=== PATIENT | male | born 1930 | race Caucasian/White ===

== ENCOUNTER 2019-07-23 10:16 | Emergency (ER) | payer MEDICARE, OTHER ==
--- NOTE | 2019-07-23 11:01 | EDM.PDOC ---
ED HPI GENERAL MEDICAL PROBLEM - General Chief Complaint: Gastrointestinal Problem Stated Complaint: not able to eat or drink Time Seen by Provider: 07/23/19 10:45 Source of Information: Reports: Patient, Old Records, RN History Limitations: Reports: No Limitations - History of Present Illness INITIAL COMMENTS - FREE TEXT/NARRATIVE: 88 yo male presents with his with about 2 weeks of discomfort after eating in his abdomen. He has been doing a little better by snacking and not eating whole meals. He feels gassy when he eats or drinks. He has not had any vomiting. His stools have been mostly normal. No fever. He thinks he has lost about 10 lbs since this began. At no point did he consult his own physician. He had something like this once remotely and was seen at [facility] who really didn't find anything he says. His urination is unchanged. Past surgeries include cholecystectomy and repair of a perforation that occurred during colonoscopy. Onset: Gradual Onset Date: 07/09/19 Duration: Week(s): (2), Getting Worse Location: Reports: Abdomen Quality: Reports: Other (fullness/gassiness after eating. ) Severity: Moderate Improves with: Reports: Other (not eating) Worsens with: Reports: Eating Context: Reports: Other (See HPI) Associated Symptoms: Reports: Other (weight loss of 10 lbs). 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: Other (see below) (none) - Related Data Allergies Allergy/AdvReac Type Severity Reaction Status Date / Time morphine Allergy Cannot Verified 07/23/19 10:51 Remember Home Meds: Home Meds Omeprazole 20 mg PO DAILY 03/24/13 [History] Brimonidine [Alphagan 0.2% Ophth Soln] 1 drop EYERT TID 07/23/19 [History] Dorzolamide/Timolol [Dorzolomide-Timolol Eye Drops] 1 drop EYERT BID 07/23/19 [ History] Latanoprost 1 drop EYERT BEDTIME 07/23/19 [History] PEG 400/Hypromellose/Glycerin [Dry Eye Relief Eye Drops] 1 drop EYEBOTH TID PRN 07/23/19 [History] Past Medical History - Past Health History Medical/Surgical History: Denies Medical/Surgical History Social & Family History - Tobacco Use Smoking Status *Q: Former Smoker Used Tobacco, but Quit: No ED ROS GENERAL - Review of Systems Review Of Systems: See Below Constitutional: Reports: No Symptoms HEENT: Reports: No Symptoms Respiratory: Reports: No Symptoms Cardiovascular: Reports: No Symptoms GI/Abdominal: Reports: Abdominal Pain (only if he eats), Anorexia, Decreased Appetite, Distension (after eating). Denies: Black Stool, Bloody Stool, Constipation, Diarrhea, Flatus, Hematochezia, Melena, Nausea, Vomiting : Reports: No Symptoms Musculoskeletal: Reports: No Symptoms Skin: Reports: No Symptoms Neurological: Reports: No Symptoms ED EXAM, GI/ABD - Physical Exam Exam: See Below Exam Limited By: No Limitations General Appearance: Alert, WD/WN, No Apparent Distress Eyes: Bilateral: Normal Appearance Ears: Normal External Exam, Normal Canal, Hearing Grossly Normal Nose: Normal Inspection, No Blood Throat/Mouth: Normal Inspection, Normal Lips, Normal Oropharynx, Normal Voice, No Airway Compromise Head: Atraumatic, Normocephalic Neck: Normal Inspection Respiratory/Chest: No Respiratory Distress, Lungs Clear, Normal Breath Sounds, No Accessory Muscle Use Cardiovascular: Regular Rate, Rhythm, No Edema GI/Abdominal Exam: Normal Bowel Sounds, Soft, Non-Tender, No Distention Back Exam: Normal Inspection. No: CVA Tenderness (R), CVA Tenderness (L) Extremities: Normal Inspection, Normal Range of Motion, Non-Tender, No Pedal Edema. No: Pedal Edema Neurological: Alert, Oriented, CN II-XII Intact, Normal Cognition, No Motor/ Sensory Deficits Psychiatric: Normal Affect, Normal Mood Skin Exam: Warm, Dry, Intact, Normal Color, No Rash Course - Vital Signs Last Recorded V/S: Last Vital Signs Temp 36.5 C 07/23/19 14:50 Pulse 67 07/23/19 14:50 Resp 18 07/23/19 14:50 BP 138/79 07/23/19 14:50 Pulse Ox 100 07/23/19 14:50 - Orders/Labs/Meds Orders: Active Orders 24 hr Category Date Time Status Abdomen Pelvis w Cont [CT] Stat Exams 07/23/19 12:56 Taken Sodium Chloride 0.9% [Saline Flush] Med 07/23/19 10:56 Active 10 ml FLUSH ASDIRECTED PRN Saline Lock Insert [OM.PC] Routine Oth 07/23/19 10:56 Ordered Medication Orders Sodium Chloride (Saline Flush) 10 ml FLUSH ASDIRECTED PRN PRN Reason: Keep Vein Open Last Admin: 07/23/19 14:35 Dose: 10 ml Admin: 07/23/19 12:05 Dose: 10 ml Labs: Laboratory Tests 07/23/19 07/23/19 07/23/19 Range/Units 11:05 11:20 11:20 WBC 5.7 (4.5-12.0) X10-3/uL RBC 5.11 (4.30-5.75) x10(6)uL Hgb 14.9 (13.5-17.8) g/dL Hct 46.0 (30.0-51.3) % MCV 90.0 (80-96) fL MCH 29.2 (27.7-33.6) pg MCHC 32.4 (32.2-35.4) g/dL RDW 13.0 (11.5-15.5) % Plt Count 194 (125-369) X10(3)uL Sodium 141 (135-145) mmol/L Potassium 3.7 (3.5-5.3) mmol/L Chloride 103 (100-110) mmol/L Carbon Dioxide 30 (21-32) mmol/L BUN 13 (7-18) mg/dL Creatinine 1.0 (0.70-1.30) mg/dL Est Cr Clr Drug Dosing 47.85 mL/min Estimated GFR (MDRD) > 60 (>60) BUN/Creatinine Ratio 13.0 (9-20) Glucose 111 (80-116) mg/dL Calcium 8.8 (8.6-10.2) mg/dL Total Bilirubin 1.2 (0.1-1.3) mg/dL AST 22 (5-25) IU/L ALT 26 (12-36) U/L Alkaline Phosphatase 60 (56-112) IU/L Total Protein 6.8 (6.0-8.0) g/dL Albumin 3.9 (3.2-4.6) g/dL Globulin 2.9 g/dL Albumin/Globulin Ratio 1.3 Urine Color Yellow (YELLOW) Urine Appearance Clear (CLEAR) Urine pH 6.0 (5.0-6.5) Ur Specific [place] 1.015 (1.010-1.025) Urine Protein Negative (NEGATIVE) mg/dL Urine Glucose (UA) Normal (NORMAL) mg/dL Urine Ketones Negative (NEGATIVE) mg/dL Urine Occult Blood Negative (NEGATIVE) Urine Nitrite Negative (NEGATIVE) Urine Bilirubin Negative (NEGATIVE) Urine Urobilinogen Normal (NEGATIVE) mg/dL Ur Leukocyte Esterase Negative (NEGATIVE) Urine RBC 0-5 (0-5) Urine WBC 0-5 (0-5) Ur Squamous Epith Cells Occasional (NS,R,O) Urine Bacteria Few H (NS) Meds: Medications Generic Name Dose Route Start Last Admin Trade Name Freq PRN Reason Stop Dose Admin Sodium Chloride 10 ml 07/23/19 10:56 07/23/19 14:35 Saline Flush FLUSH 10 ml ASDIRECTED PRN Administration Keep Vein Open Discontinued Medications Generic Name Dose Route Start Last Admin Trade Name Freq PRN Reason Stop Dose Admin Iopamidol 100 ml 07/23/19 12:13 07/23/19 15:10 Isovue-370 (76%) IV 07/23/19 12:14 100 ml ONETIME ONE Administration Metoclopramide HCl 5 mg 07/23/19 14:31 07/23/19 14:34 Reglan IVPUSH 07/23/19 14:32 5 mg ONETIME ONE Administration Ondansetron HCl 4 mg 07/23/19 14:30 07/23/19 14:32 Zofran Odt PO 07/23/19 14:31 Not Given ONETIME ONE - Radiology Interpretation Free Text/Narrative:: CT abd/pelvis with IV contrast-no clear explanation for sx's. Discussed with radiology, will repeat with oral contrast. CT abd/pelvis with oral contrast-narrowing of colon at rectosigmoid jxn. CT Results Date: 07/23/19 CT Results Time: 12:58 Departure - Departure Time of Disposition: 15:46 Disposition: Home, Self-Care 01 Condition: Fair Clinical Impression: Colon stricture - Discharge Information *PRESCRIPTION DRUG MONITORING PROGRAM REVIEWED*: Not Applicable *COPY OF PRESCRIPTION DRUG MONITORING REPORT IN PATIENT ROBBIE: Not Applicable Referrals: Fernando Denton MD [Primary Care Provider] - Forms: ED Department Discharge Additional Instructions: See Dr. Denton to get set up with a disk recoater or surgeon to evaluate and treat this colonic narrowing problem. Sepsis Event Note (ED) - Evaluation Sepsis Screening Result: No Definite Risk - Focused Exam Vital Signs: Vital Signs Temp Pulse Resp BP Pulse Ox 07/23/19 14:50 36.5 C 67 18 138/79 100 07/23/19 14:24 36.6 C 71 18 161/98 H 99 07/23/19 12:34 36.7 C 56 L 16 151/70 H 100 07/23/19 10:40 36.7 C 64 18 155/68 H 96 - My Orders Last 24 Hours: My Active Orders 07/23/19 10:56 Sodium Chloride 0.9% [Saline Flush] 10 ml FLUSH ASDIRECTED PRN Saline Lock Insert [OM.PC] Routine 07/23/19 12:56 Abdomen Pelvis w Cont [CT] Stat - Assessment/Plan Last 24 Hours: My Active Orders 07/23/19 10:56 Sodium Chloride 0.9% [Saline Flush] 10 ml FLUSH ASDIRECTED PRN Saline Lock Insert [OM.PC] Routine 07/23/19 12:56 Abdomen Pelvis w Cont [CT] Stat
[2019-07-23] MEDS: Sodium Chloride 0.9% 10 ML Syringe FLUSH PRN ×2 (12:05→14:35)
[2019-07-23] MEDS ORDERED: Iopamidol 755 Mg/ML 100 ML Bottle IV ONE (12:13)
--- NOTE | 2019-07-23 14:24 | CT ---
INDICATION: Abdominal pain and bloating with eating, weight loss. CT ABDOMEN AND PELVIS WITH CONTRAST: Spiral 3.75 mm axial sections were obtained with 80 cc Isovue 370 at 2 cc/s with 100 second delay with sagittal and coronal reconstructions, 07/23/2019-no comparison. Total exam DLP: 418.04 mGy-cm Some minimal fibrosis is suggested at the right lower lobe at the lung base with no definite active infiltrate or effusion identified. The gallbladder is absent compatible with history of its removal. A few small and tiny cystic structures are suggested in the liver, which overall was unremarkable. The spleen had a normal appearance. The pancreas appeared normal with normal common bile duct in the head of the pancreas. The adrenal glands appear normal. Multicystic changes are noted in the right kidney with the largest of the cysts partially exophytic cortical and in the lateral cortex of the mid pole of the right kidney. A few other tiny probable cysts are noted at the lower pole of the right kidney with one small cyst in the lower pole lateral cortex of the left kidney which measured approximately 19 mm. No definite obstructive uropathy could be identified. There is some calcification of the abdominal aorta and iliac as well as femoral arteries. No aneurysmal dilatation of the aorta was noted. The prostate is enlarged, measuring 60 x 51 x 59 mm and impressing on the floor of the urinary bladder. The urinary bladder otherwise appears unremarkable. The appendix appeared normal visualized on sagittal images 34-37 and coronal images 32-36, as well as axial images 82-87. No retroperitoneal masses were identified. No evidence of free air was identified. There is mild relative distention with air fluid levels in the proximal to mid jejunal loops, raising question of a minimal or partially obstructive process involving those loops, due to a partially obstructive process at the distal jejunum or proximal ileum level, most likely in the mid upper middle pelvis. Small bowel series or CT with oral contrast may be helpful for further evaluation in that regard. Otherwise, no organomegaly, mass lesions, or free fluid collections were identified in the abdomen or pelvis. IMPRESSION: 1. Difficult to exclude a partially obstructive process in the mid small bowel. Follow-up contrast examination may be helpful. 2. ASD. 3. Multicystic changes in the kidneys, relatively mild. 4. Post cholecystectomy. 5. Prostatic enlargement with measurements of 60 x 51 x 69 mm in transverse, AP and craniocaudad diameters with impingement on the floor of the urinary bladder. Report was given in person to Dr. Cruz at approximately 1254 hours. [facility]
[2019-07-23] MEDS ORDERED: Ondansetron 4 MG Tab.DIS PO ONE (14:30)
[2019-07-23] MEDS ORDERED: Metoclopramide 10 MG/2 ML SDV IVPUSH ONE (14:31)
--- NOTE | 2019-07-23 18:34 | CT ---
INDICATION: Bloating after eating, possible area of narrowing in the small bowel on previous CT of the same date. CT ABDOMEN AND PELVIS WITH ORAL CONTRAST: Spiral 3.75 mm axial sections were obtained through the abdomen and pelvis with oral contrast only and compared with the IV contrast examination of the same date. Total exam DLP was 354.43 mGy-cm. In the rectosigmoid, there is a line of what appear to be cheri compatible with previous surgery apparently for repair of a perforation which occurred during colonoscopy. There is relative narrowing of the sigmoid colon compared with the remainder of the colon. Colonoscopy or barium enema may be helpful for further evaluation of this area. No pericolonic fat stranding was noted. No finding to suggest a complete mechanical obstruction was noted. Contrast does extend into the transverse colon. Other findings are as noted earlier. IMPRESSION: There is evidence of previous colon surgery for perforation at the level of the rectosigmoid. There is relative narrowing of that portion of the sigmoid colon on both the IV contrast and the oral contrast portions. Report was called to Dr. Cruz at 1543 hours. [facility]
== END 2019-07-23 16:00 | disposition home or self-care (01) ==
LOC: FB.ED 10:16
DX: K56.699 Other intestinal obstruction unspecified as to partial versus complete obstruction (principal); Z88.5 Allergy status to narcotic agent; Z79.899 Other long term (current) drug therapy; Z87.891 Personal history of nicotine dependence
CPT/HCPCS: 36415; 74177; 80053; 81001; 85027; 96374; 99284; J2765; Q9967

== ENCOUNTER 2019-07-27 11:12 | Emergency (ER) | payer MEDICARE, OTHER ==
[2019-07-27] MEDS ORDERED: Iopamidol 755 Mg/ML 100 ML Bottle IV ONE ×2 (13:00→13:06)
--- NOTE | 2019-07-27 13:02 | EDM.PDOC ---
ED HPI GENERAL MEDICAL PROBLEM - General Chief Complaint: General Stated Complaint: BLOODY STOOL Time Seen by Provider: 07/27/19 11:58 Source of Information: Reports: Patient, Family, Old Records History Limitations: Reports: No Limitations - History of Present Illness INITIAL COMMENTS - FREE TEXT/NARRATIVE: Andrew returns to [facility] ED with sxs of fatigue, loss of appetite, and episode at 10:30 am today when he experienced SOB for several minutes while lying down awaiting a phone call. There was no cough, chest pain, palpitations, lt headiness, or LOC. Sxs resolved spontaneously, without sequelae. He was seen in the ED on July 22 with reported 10# wt loss, loss of appetite, and subsequent Abd-Pelvic CT w contrast findings for a narrowing at the rectosigmoid junction, possibly related to a prior repair of a colon perforation post colonscopy. More recently, he is reporting BRB with BMs over the past 2 days. - Related Data Allergies Allergy/AdvReac Type Severity Reaction Status Date / Time morphine Allergy Cannot Verified 07/27/19 11:42 Remember Home Meds: Home Meds Omeprazole 20 mg PO DAILY 03/24/13 [History] Brimonidine [Alphagan 0.2% Ophth Soln] 1 drop EYERT TID 07/23/19 [History] Dorzolamide/Timolol [Dorzolomide-Timolol Eye Drops] 1 drop EYERT BID 07/23/19 [History] Latanoprost 1 drop EYERT BEDTIME 07/23/19 [History] PEG 400/Hypromellose/Glycerin [Dry Eye Relief Eye Drops] 1 drop EYEBOTH TID PRN 07/23/19 [History] Past Medical History - Past Health History Medical/Surgical History: Denies Medical/Surgical History HEENT History: Reports: Glaucoma Gastrointestinal History: Reports: GERD, Other (See Below) Other Gastrointestinal History: 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 GI Surgical History: Reports: Colonoscopy, Hernia, Inguinal (right), Other (See Below) (repair of perforated colon post colonscopy about 2009) Male Surgical History: Reports: Other (See Below) Other Male Surgeries/Procedures: Bladder surgery in the past. Social & Family History - Family History Family Medical History: Noncontributory - Tobacco Use Smoking Status *Q: Never Smoker - Caffeine Use Caffeine Use: Reports: Coffee Caffeine Use Comment: very little - Recreational Drug Use Recreational Drug Use: No ED ROS GENERAL - Review of Systems Review Of Systems: See Below Constitutional: Reports: Malaise, Weakness, Fatigue, Decreased Appetite, Weight Loss HEENT: Reports: No Symptoms, Sinus Problem (suspected post nasal discharge, chronic) Respiratory: Reports: Shortness of Breath (recent, transient) Cardiovascular: Reports: No Symptoms Endocrine: Reports: Fatigue GI/Abdominal: Reports: Bloody Stool (past 2 days), Decreased Appetite, Other (suspected 20# wt lost over past 5-6 weeks) : Reports: No Symptoms Musculoskeletal: Reports: Joint Pain (wrists, suspected arthritis) Skin: Reports: No Symptoms Neurological: Reports: No Symptoms Psychiatric: Reports: No Symptoms Hematologic/Lymphatic: Reports: No Symptoms Immunologic: Reports: No Symptoms ED EXAM, GENERAL - Physical Exam Exam: See Below Exam Limited By: No Limitations General Appearance: Alert, WD/WN, No Apparent Distress, Thin Eye Exam: Bilateral Eye: EOMI, Normal Inspection, PERRL Ears: Normal External Exam Nose: Normal Inspection Throat/Mouth: Normal Inspection, Normal Lips, Normal Oropharynx, Normal Voice, No Airway Compromise Head: Normocephalic Neck: Normal Inspection, Supple, Non-Tender, Full Range of Motion Respiratory/Chest: No Respiratory Distress, Lungs Clear, Normal Breath Sounds, No Accessory Muscle Use, Chest Non-Tender Cardiovascular: Normal Peripheral Pulses, Regular Rate, Rhythm, No Edema, No JVD, No Murmur GI/Abdominal: Normal Bowel Sounds, Soft, Non-Tender, No Organomegaly, No Distention, No Abnormal Bruit, No Mass, Pelvis Stable (Male) Exam: No Hernia, Normal Inspection Rectal (Males) Exam: Normal Exam, BPH, Heme + Stool, Other (anal stricture) Back Exam: Normal Inspection Extremities: Normal Inspection Neurological: Alert, Oriented, CN II-XII Intact, Normal Cognition, Normal Gait, No Motor/Sensory Deficits Psychiatric: Normal Affect, Normal Mood Skin Exam: Warm, Dry, Intact, Normal Color, No Rash Lymphatic: No Adenopathy Course - Vital Signs Text/Narrative:: Following assessment, I repeated the CBC, no change from earlier in the week. The SFOB was positive. The d dimer was .0.71 mildly elevated; PSA, PELP, and CEA titre all pending; the chest x ray was baseline; the Chest CT w contrast noted an abnormality in the L apex, scattered pulmonary nodules and suspected bronchiectasis findings. A diagnosis for wt loss could not be confirmed, and further evaluation of BRB in the stools and pulmonary findings need clarification. Dr Denton's office was contacted for follow up. Last Recorded V/S: Last Vital Signs Temp 36.6 C 07/27/19 11:27 Pulse 59 L 07/27/19 11:27 Resp 19 07/27/19 11:27 BP 147/73 H 07/27/19 11:27 Pulse Ox 100 07/27/19 11:27 - Orders/Labs/Meds Orders: Active Orders 24 hr Category Date Time Status Chest 1V Frontal [CR] Stat Exams 07/27/19 12:12 Taken Chest w Cont [CT] Stat Exams 07/27/19 12:56 Taken CEA Urgent Lab 07/27/19 12:32 Received PROTEIN ELEC + INTERP, SERUM Urgent Lab 07/27/19 12:32 Received PSA TOTAL+% FREE Urgent Lab 07/27/19 12:32 Received TSH ULTRASENSITIVE [CHEM] Stat Lab 07/27/19 14:03 Ordered Labs: Laboratory Tests 07/27/19 07/27/19 Range/Units 12:32 12:32 WBC 5.5 (4.5-12.0) X10-3/uL RBC 5.06 (4.30-5.75) x10(6)uL Hgb 14.8 (13.5-17.8) g/dL Hct 45.5 (30.0-51.3) % MCV 89.8 (80-96) fL MCH 29.2 (27.7-33.6) pg MCHC 32.5 (32.2-35.4) g/dL RDW 12.6 (11.5-15.5) % Plt Count 184 (125-369) X10(3)uL MPV 8.3 (7.4-10.4) fL Neut % (Auto) 75.4 (46-82) % Lymph % (Auto) 13.5 (13-37) % Green % (Auto) 9.5 (4-12) % Eos % (Auto) 1 (1.0-5.0) % Baso % (Auto) 1 (0-2) % Neut # (Auto) 4.2 (1.6-8.3) # Lymph # (Auto) 0.7 (0.6-5.0) # Green # (Auto) 0.5 (0.0-1.3) # Eos # (Auto) 0.0 (0.0-0.8) # Baso # (Auto) 0.1 (0.0-0.2) # ESR 4 (0-15) mm/hr D-Dimer, Quantitative 0.71 H (0.0-0.59) mg/LFEU Meds: Medications Discontinued Medications Generic Name Dose Route Start Last Admin Trade Name Freq PRN Reason Stop Dose Admin Iopamidol 100 ml 07/27/19 13:00 07/27/19 13:09 Isovue-370 (76%) IV 07/27/19 13:01 70 ml . DIRECTED ONE Administration Iopamidol 100 ml 07/27/19 13:06 07/27/19 13:07 Isovue-370 (76%) IV 07/27/19 13:07 Not Given . DIRECTED ONE Departure - Departure Time of Disposition: 14:07 Disposition: Home, Self-Care 01 Condition: Fair Clinical Impression: Unexplained weight loss Dyspnea, unspecified Qualifiers: Dyspnea type: unspecified Qualified Code(s): R06.00 - Dyspnea, unspecified - Discharge Information *PRESCRIPTION DRUG MONITORING PROGRAM REVIEWED*: Not Applicable *COPY OF PRESCRIPTION DRUG MONITORING REPORT IN PATIENT ROBBIE: Not Applicable Referrals: Fernando Denton MD [Primary Care Provider] - Forms: ED Department Discharge Sepsis Event Note (ED) - Evaluation Sepsis Screening Result: No Definite Risk - Focused Exam Vital Signs: Vital Signs Temp Pulse Resp BP Pulse Ox 07/27/19 11:27 36.6 C 59 L 19 147/73 H 100 - Problem List & Annotations (1) Dyspnea, unspecified SNOMED Code(s): 009467976 Code(s): R06.00 - DYSPNEA, UNSPECIFIED Status: Acute Current Visit: Yes Annotation/Comment:: Dyspnea NOS, transient. 02 sats 100% on RA. No meds dispensed. Qualifiers: Dyspnea type: unspecified Qualified Code(s): R06.00 - Dyspnea, unspecified (2) Unexplained weight loss SNOMED Code(s): 621567780 Code(s): R63.4 - ABNORMAL WEIGHT LOSS Status: Acute Current Visit: Yes Annotation/Comment:: Follow up with PCP. - Problem List Review Problem List Initiated/Reviewed/Updated: Yes - My Orders Last 24 Hours: My Active Orders 07/27/19 12:12 Chest 1V Frontal [CR] Stat 07/27/19 12:32 CEA Urgent PROTEIN ELEC + INTERP, SERUM Urgent PSA TOTAL+% FREE Urgent 07/27/19 12:56 Chest w Cont [CT] Stat 07/27/19 14:03 TSH ULTRASENSITIVE [CHEM] Stat - Assessment/Plan Last 24 Hours: My Active Orders 07/27/19 12:12 Chest 1V Frontal [CR] Stat 07/27/19 12:32 CEA Urgent PROTEIN ELEC + INTERP, SERUM Urgent PSA TOTAL+% FREE Urgent 07/27/19 12:56 Chest w Cont [CT] Stat 07/27/19 14:03 TSH ULTRASENSITIVE [CHEM] Stat Plan: Follow up with PCP.
--- NOTE | 2019-07-27 16:51 | CR ---
INDICATION: Transient dyspnea this a.m. CHEST, ONE VIEW: AP portable upright view of the chest 07/27/19 was compared with 04/12/13 and 03/25/13. The heart remains hiro in size and shape. The aorta is tortuous with calcification in the arch as previously. An active infiltrate or effusion was not identified. No evidence of CHF is seen. IMPRESSION: No acute process. Stable appearance of the chest. MTDD
[2019-07-28 09:11] LABS: % FREE PSA 15.4 % (.); PROSTATE SPECIFIC AG, SERUM 6.3 ng/mL (0.0-4.0); PSA, FREE 0.97 ng/mL
[2019-07-30 16:10] LABS: A/G RATIO 1.5 (0.7-1.7); ALBUMIN 3.7 g/dL (2.9-4.4); ALPHA-1-GLOBULIN 0.3 g/dL (0.0-0.4); ALPHA-2-GLOBULIN 0.7 g/dL (0.4-1.0); BETA GLOBULIN 0.8 g/dL (0.7-1.3); GAMMA GLOBULIN 0.8 g/dL (0.4-1.8); GLOBULIN, TOTAL 2.5 g/dL (2.2-3.9); M-SPIKE Not Observed g/dL (Not Observed); PROTEIN, TOTAL, SERUM 6.2 g/dL (6.0-8.5)
== END 2019-07-27 14:30 | disposition home or self-care (01) ==
LOC: FB.ED 11:12
DX: R63.4 Abnormal weight loss (principal); R06.02 Shortness of breath; K21.9 Gastro-esophageal reflux disease without esophagitis; Z88.5 Allergy status to narcotic agent; Z79.899 Other long term (current) drug therapy
CPT/HCPCS: 36415; 71045; 71260; 82272; 82378; 84153; 84154; 84165; 84443; 85025; 85379; 85651; 99285; Q9967

== ENCOUNTER 2021-03-10 10:59 | Emergency (ER) | payer MEDICARE, OTHER ==
[2021-03-10] MEDS ORDERED: Sodium Chloride 0.9% 1,000 ML IV ONE ×2 (11:21→12:47)
[2021-03-10] MEDS ORDERED: Iopamidol 755 Mg/ML 75 ML Bottle IV ONE (12:55)
[2021-03-10] MEDS ORDERED: Ondansetron 4 MG/2 ML SDV IVPUSH ONE (13:31)
[2021-03-10] MEDS ORDERED: Ketorolac 30 MG/ML SDV IVPUSH ONE (13:31)
== END 2021-03-10 15:25 | disposition home or self-care (01) ==
LOC: FB.ED 10:59
DX: U07.1 COVID-19 (principal); J12.82 Pneumonia due to coronavirus disease 2019; E86.0 Dehydration; R63.0 Anorexia; R91.1 Solitary pulmonary nodule; R33.9 Retention of urine, unspecified; K21.9 Gastro-esophageal reflux disease without esophagitis; Z88.5 Allergy status to narcotic agent; Z79.899 Other long term (current) drug therapy
CPT/HCPCS: 36415; 71275; 80053; 81001; 84484; 85025; 85379; 86140; 93005; 96374; 96375; 99284-25; J1885; J2405; J7030; Q9967

== ENCOUNTER 2021-03-15 20:29 | Emergency (ER) | payer MEDICARE, OTHER ==
[2021-03-15] MEDS ORDERED: Sodium Chloride 0.9% 10 ML Syringe FLUSH PRN (22:09)
[2021-03-15] MEDS ORDERED: Magnesium Citrate Solution 296 ML Bottle PO ONE (22:53)
[2021-03-15] MEDS ORDERED: Bisacodyl 10 MG Supp RECTAL ONE (22:54)
[2021-03-16] MEDS ORDERED: Simethicone 80 MG Tab.Chew PO SCH (09:00)
== END 2021-03-16 02:15 | disposition home or self-care (01) ==
LOC: FB.ED 20:29
DX: K59.01 Slow transit constipation (principal); R42 Dizziness and giddiness; Z88.5 Allergy status to narcotic agent; Z79.899 Other long term (current) drug therapy
CPT/HCPCS: 36415; 74019; 80048; 81001; 85027; 99284; A9270